=== PATIENT | female | born 1970 | race Caucasian/White ===

== ENCOUNTER → 2017-03-29 | Outpatient (CLI) | payer BC ==
--- NOTE | 2017-03-29 12:35 | RAD ---
Exam performed: Pelvic Ultrasound. Indication: Left lower quadrant abdominal pain, history of ablation 3 years ago Date of Service: 03/29/17. Comparison: None available Technique: Transabdominal Findings: The uterus is anteverted and [id number] x 3.8 x 5.3 cm. The endometrial stripe measures 6.8 mm. There is collection in the endometrium measuring 1.1 x 0.7 x 0.8 cm. Both ovaries are normal. The right ovary measures 2.6 x 1.6 x 2.1 cm , the left ovary measures 2.9 x 1.1 x 2.9 cm. There is no solid or cystic mass lesion. Symmetric vascularity to both ovaries. No free fluid Impression: 1. Small round fluid collection in the endometrium measuring 1.1 x 0.7 x 0.8 cm. The etiology of this is not clear. Correlate with serum hCG levels to rule out possibility of early gestational sac. 2.Normal bilateral ovaries
== END | disposition home or self-care (01) ==
LOC: US 11:17
PROVIDERS: ATTEND Specialist
DX: R10.32 Left lower quadrant pain (principal)
CPT/HCPCS: 76856